=== PATIENT | female | born 1985 | race American Indian/Alaskan Native ===

== ENCOUNTER 2021-06-29 23:20 | Emergency (ER) | payer SELFPAY ==
--- NOTE | 2021-06-30 03:51 | XRay Report ---
RIGHT ANKLE 3 VIEW(S) INDICATION / CLINICAL INFORMATION: FALL COMPARISON: None available. FINDINGS: BONES / JOINT(S): No acute fracture or subluxation. No significant arthritis. SOFT TISSUES: Moderate soft tissue swelling overlies the lateral malleolus. ADDITIONAL FINDINGS: None. IMPRESSION: Moderate soft tissue swelling overlies lateral malleolus. No fractures or avulsion fragments. Signer Name: Pepe Degroot II, MD Signed: 06/30/2021 3:47 AM Workstation Name: [id number]
--- NOTE | 2021-06-30 03:52 | XRay Report ---
RIGHT KNEE 3 VIEW(S) INDICATION / CLINICAL INFORMATION: FALL COMPARISON: None available. FINDINGS: BONES / JOINT(S): No acute fracture or subluxation. No significant arthritis. SOFT TISSUES: No significant abnormality. ADDITIONAL FINDINGS: None. IMPRESSION: 1.No acute findings. No significant abnormality. Signer Name: Pepe Degroot II, MD Signed: 06/30/2021 3:47 AM Workstation Name: [id number]
--- NOTE | 2021-06-30 06:26 | Emergency Department Report ---
ED Extremity Problem HPI - General Chief complaint: Extremity Injury, Lower Stated complaint: RT ANKLE PAIN Source: patient Mode of arrival: Wheelchair Limitations: No Limitations - History of Present Illness Initial comments: 36-year-old female presents to the ED complaining right ankle and right knee pain after falling off porch x 1 day. Also complaining left toothache for se veral days . Patient states right ankle pain is a 8 out of 10 .tooth ache is 8 out of 10 .knee pain is a 2 out of 10 patient has obvious swelling noted to the right ankle. Patient unable to bear weight without pain. No Distracting injury noted. No obvious deformity noted. Patient is alert and oriented x3. She denies any LOC when falling off porch. Patient states that next month she has a dental appointment and has future plans to have all any teeth extracted.. No acute distress noted. No ill appearance noted. MD Complaint: extremity pain, extremity swelling Onset/Timin -: Last night Location: right, knee, other (Ankle) History of Same: No Severity scale (0 -10): 8 Quality: aching Improves with: nothing Worsens with: weight bearing Associated Symptoms: denies other symptoms - Related Data Previous Rx's Medication Instructions Recorded Last Taken Type Acetaminophen/Codeine [Tylenol 1 tab PO Q6H PRN 3 Days #12 tab 06/30/21 Unknown Rx /Codeine # 3 tab] clindamycin HCL [Clindamycin HCl] 300 mg PO BID 10 Days #20 cap 06/30/21 Unknown Rx Allergies Allergy/AdvReac Type Severity Reaction Status Date / Time No Known Allergies Allergy Unverified 06/30/21 02:52 ED Review of Systems ROS: Stated complaint: RT ANKLE PAIN Other details as noted in HPI Constitutional: denies: chills, fever Eyes: denies: eye pain, eye discharge, vision change ENT: dental pain. denies: ear pain, throat pain Respiratory: denies: cough, shortness of breath, wheezing Cardiovascular: denies: chest pain, palpitations Endocrine: no symptoms reported Gastrointestinal: denies: abdominal pain, nausea, diarrhea Genitourinary: denies: urgency, dysuria, discharge Musculoskeletal: joint swelling. denies: back pain, arthralgia Skin: denies: rash, lesions Neurological: denies: headache, weakness, paresthesias Psychiatric: denies: anxiety, depression Hematological/Lymphatic: denies: easy bleeding, easy bruising ED Past Medical Hx - Medications Home Medications: Home Medications Medication Instructions Recorded Confirmed Last Taken Type Acetaminophen/Codeine [Tylenol 1 tab PO Q6H PRN 3 Days #12 tab 06/30/21 Unknown Rx /Codeine # 3 tab] clindamycin HCL [Clindamycin HCl] 300 mg PO BID 10 Days #20 cap 06/30/21 Unknown Rx ED Physical Exam - General Limitations: No Limitations General appearance: alert, in no apparent distress - Head Head exam: Present: atraumatic, normocephalic - Eye Eye exam: Present: normal appearance - ENT ENT exam: Present: mucous membranes moist - Expanded ENT Exam Expanded Mouth exam: Absent: drooling, trismus, muffled voice Teeth exam: Present: dental caries, dental tenderness # - Neck Neck exam: Present: normal inspection - Respiratory Respiratory exam: Present: normal lung sounds bilaterally. Absent: respiratory distress - Cardiovascular Cardiovascular Exam: Present: regular rate, normal rhythm. Absent: systolic murmur, diastolic murmur, rubs, gallop - GI/Abdominal GI/Abdominal exam: Present: soft, normal bowel sounds - Extremities Exam Extremities exam: Present: normal inspection - Back Exam Back exam: Present: normal inspection - Neurological Exam Neurological exam: Present: alert, oriented X3 - Psychiatric Psychiatric exam: Present: normal affect, normal mood - Skin Skin exam: Present: warm, dry, intact, normal color. Absent: rash ED Course Vital Signs 06/30/21 02:47 Temperature 98.4 F Pulse Rate 99 H Respiratory 19 Rate Blood Pressure 166/97 [Right] O2 Sat by Pulse 99 Oximetry ED Medical Decision Making - Radiology Data Radiology results: report reviewed - Medical Decision Making 36-year-old female presents to the ED complaining right ankle and right knee pain after falling off porch x 1 day. Also complaining left toothache for several days . Patient states right ankle pain is a 8 out of 10 .tooth ache is 8 out of 10 .knee pain is a 2 out of 10 patient has obvious swelling noted to the right ankle. Patient unable to bear weight without pain. No Distracting injury noted. No obvious deformity noted. Patient is alert and oriented x3. She denies any LOC when falling off porch. Patient states that next month she has a dental appointment and has future plans to have all remaining teeth extracted. No acute distress noted. No ill appearance noted. Right ankle 3 view shows moderate soft tissue swelling overlies lateral malleolus. No fracture or avulsion fragment noted. Moisés bandage applied. Patient instructed RICE therapy. Right knee 3 views show no acute finding or abnormality. Physical examination unremarkable with the exception of multiple dental caries with gingival erythema with dental swelling noted. She is to keep appointment with dentist. Rechecked the patient is resting quietly quietly and comfortable and feeling better. I discussed the results of diagnostic study, my clinical impression and the plan for further treatment with the patient. Patient agrees with plan and discharge at this present time. All question addressed. I have given the patient instruction regarding a diagnosis ,expectation ,follow- up and return precaution. I explained to the patient that emergent condition may arise and to return to the ED for new worsen and any new persisting condition. I have explained the importance of following up with the primary care physician or referral physician listed below has instructed. The patient verbalized understanding of discharge instruction. Critical care attestation.: If time is entered above; I have spent that time in minutes in the direct care of this critically ill patient, excluding procedure time. ED Disposition Clinical Impression: Tooth ache Right knee pain Qualifiers: Chronicity: acute Qualified Code(s): M25.561 - Pain in right knee Right ankle sprain Qualifiers: Encounter type: initial encounter Involved ligament of ankle: unspecified ligam ent Qualified Code(s): S93.401A - Sprain of unspecified ligament of right ankle, initial encounter Disposition: 01 HOME / SELF CARE / HOMELESS Is pt being admited?: No Does the pt Need Aspirin: No Condition: Stable Instructions: Acute Knee Pain, Adult, How to Use Cold Therapy, [id number], Ankle Sprain, [id number] Additional Instructions: Keep appointment with dentist for next month Return the ED for any worsening symptoms Prescriptions: clindamycin HCL [Clindamycin HCl] 300 mg PO BID 10 Days #20 cap Acetaminophen/Codeine [Tylenol /Codeine # 3 tab] 1 tab PO Q6H PRN 3 Days #12 tab PRN Reason: Pain, Moderate (4-6) Referrals: JULIETTE CARTAGENA MD [Staff Physician] - 3-5 Days [facility] [Provider Group] - 3-5 Days Time of Disposition: 06:27
[2021-06-30 06:37] VITALS: BP 148/89
== END 2021-06-30 06:32 | disposition home or self-care (01) ==
LOC: ED 23:20
DX: S93.409A Sprain of unspecified ligament of unspecified ankle, initial encounter (principal); K08.89 Other specified disorders of teeth and supporting structures; M25.561 Pain in right knee; X58.XXXA Exposure to other specified factors, initial encounter; Y93.89 Activity, other specified; Y92.89 Other specified places as the place of occurrence of the external cause; Y99.8 Other external cause status
CPT/HCPCS: 99283

== ENCOUNTER 2021-12-14 20:00 | Emergency (ER) | payer SELFPAY ==
[2021-12-14 21:04] VITALS: BP 126/69
--- NOTE | 2021-12-15 01:11 | Emergency Department Report ---
ED N/V/D HPI - General Chief complaint: Abdominal Pain Stated complaint: STOMACH VIRUS Source: patient Mode of arrival: Ambulatory Limitations: No Limitations - History of Present Illness Initial comments: Patient is a 36-year-old -[place] female with a history of morbid obesity and asthma who presents to the ED with complaint of acute onset persistent nausea and vomiting and intractable diarrhea with suprapubic pain for the last 3 days after eating at a seafood restaurant. Patient states that other people in her family have had similar symptoms after eating the same place the same food. Patient states that she also started her menstrual cycle about 3 days ago and has been having persistent severe dysmenorrhea. Patient also states that she would like refill on her asthma medications especially albuterol inhaler. Patient states that last time she had nausea and vomiting was 2 days ago but that she has been having persistent diarrhea multiple times in the last 12 hours. Patient denies fever, chills, chest pain, dysuria, urinary frequency and urgency, dizziness, syncope, cough, sore throat, vaginal discharge or low back pain. MD complaint: nausea, vomiting, diarrhea, abdominal pain, other (Dysmenorrhea) -: days(s) (3) Description of Vomiting: food contents, watery, bilious Description of Diarrhea: water Associated Abdominal Pain: Yes (Suprapubic) Location: diffuse (Suprapubic) Radiation: none Severity: mild Pain Scale: 3 Quality: cramping, dull Consistency: intermittent Improves with: none Worsens with: none Context: possible food poisoning, sick contacts Associated Symptoms: denies other symptoms, loss of appetite, malaise, nausea/vomiting. denies: myalgias, chest pain, cough, diaphoresis, fever/chills, headaches, rash, dysuria, shortness of breath, syncope - Related Data Previous Rx's Medication Instructions Recorded Last Taken Type Acetaminophen/Codeine [Tylenol 1 tab PO Q6H PRN 3 Days #12 tab 06/30/21 Unknown Rx /Codeine # 3 tab] clindamycin HCL [Clindamycin HCl] 300 mg PO BID 10 Days #20 cap 06/30/21 Unknown Rx Albuterol Sulfate [Proair 1 - 2 puff IH Q4H PRN #1 inh 12/15/21 Unknown Rx Digihaler] Famotidine [Pepcid] 20 mg PO BID #60 tablet 12/15/21 Unknown Rx Ibuprofen [Motrin] 800 mg PO Q8HR PRN #30 tablet 12/15/21 Unknown Rx Ondansetron [Zofran Odt] 4 mg PO Q8HR PRN #20 tab.rapdis 12/15/21 Unknown Rx Allergies Allergy/AdvReac Type Severity Reaction Status Date / Time No Known Allergies Allergy Unverified 06/30/21 02:52 ED Review of Systems ROS: Stated complaint: STOMACH VIRUS Other details as noted in HPI Constitutional: denies: chills, fever Eyes: denies: eye pain, eye discharge, vision change ENT: denies: ear pain, throat pain Respiratory: denies: cough, shortness of breath, wheezing Cardiovascular: denies: chest pain, palpitations Endocrine: no symptoms reported Gastrointestinal: abdominal pain, nausea, vomiting, diarrhea Genitourinary: denies: urgency, dysuria, discharge Musculoskeletal: denies: back pain, joint swelling, arthralgia Skin: denies: rash, lesions Neurological: denies: headache, weakness, paresthesias Psychiatric: denies: anxiety, depression Hematological/Lymphatic: denies: easy bleeding, easy bruising ED Past Medical Hx - Past Medical History Previous Medical History?: Yes Hx Asthma: Yes - Medications Home Medications: Home Medications Medication Instructions Recorded Confirmed Last Taken Type Acetaminophen/Codeine [Tylenol 1 tab PO Q6H PRN 3 Days #12 tab 06/30/21 Unknown Rx /Codeine # 3 tab] clindamycin HCL [Clindamycin HCl] 300 mg PO BID 10 Days #20 cap 06/30/21 Unknown Rx Albuterol Sulfate [Proair 1 - 2 puff IH Q4H PRN #1 inh 12/15/21 Unknown Rx Digihaler] Famotidine [Pepcid] 20 mg PO BID #60 tablet 12/15/21 Unknown Rx Ibuprofen [Motrin] 800 mg PO Q8HR PRN #30 tablet 12/15/21 Unknown Rx Ondansetron [Zofran Odt] 4 mg PO Q8HR PRN #20 tab.rapdis 12/15/21 Unknown Rx ED Physical Exam - General Limitations: No Limitations General appearance: alert, in no apparent distress - Head Head exam: Present: atraumatic, normocephalic, normal inspection - Eye Eye exam: Present: normal appearance, PERRL, EOMI Pupils: Present: normal accommodation - ENT ENT exam: Present: normal exam, normal orophraynx, mucous membranes moist, TM's normal bilaterally, normal external ear exam - Neck Neck exam: Present: normal inspection, full ROM. Absent: tenderness - Respiratory Respiratory exam: Present: normal lung sounds bilaterally. Absent: respiratory distress, wheezes, rales, rhonchi, chest wall tenderness, accessory muscle use, decreased breath sounds, prolonged expiratory - Cardiovascular Cardiovascular Exam: Present: regular rate, normal rhythm, normal heart sounds. Absent: systolic murmur, diastolic murmur, rubs, gallop - GI/Abdominal GI/Abdominal exam: Present: soft, normal bowel sounds. Absent: tenderness, guarding, rebound, hyperactive bowel sounds, hypoactive bowel sounds, organomegaly, mass - Extremities Exam Extremities exam: Present: normal inspection, full ROM, normal capillary refill - Back Exam Back exam: Present: normal inspection, full ROM. Absent: tenderness, CVA t enderness (R), CVA tenderness (L), muscle spasm, paraspinal tenderness, vertebral tenderness - Neurological Exam Neurological exam: Present: alert, oriented X3, CN II-XII intact, normal gait, reflexes normal - Psychiatric Psychiatric exam: Present: normal affect, normal mood - Skin Skin exam: Present: warm, dry, intact, normal color. Absent: rash ED Course Vital Signs 12/14/21 20:59 Temperature 99.0 F Pulse Rate 95 H Respiratory 18 Rate Blood Pressure 126/69 [Right] O2 Sat by Pulse 97 Oximetry ED Medical Decision Making - Medical Decision Making This is a 36-year-old -[place] female with a history of morbid obesity and asthma who presents to the ED with complaint of acute onset persistent nausea and vomiting and intractable diarrhea with suprapubic pain for the last 3 days after eating at a seafood restaurant. Patient states that other people in her family have had similar symptoms after eating the same place the same food. Patient states that she also started her menstrual cycle about 3 days ago and has been having persistent severe dysmenorrhea. Patient also states that she would like refill on her asthma medications especially albuterol inhaler. Patient states that last time she had nausea and vomiting was 2 days ago but that she has been having persistent diarrhea multiple times in the last 12 hours. In the ED, patient is alert and oriented x3 and is not in any distress. Patient is hemodynamically stable. Patient has not had any nausea or vomiting in the last 2 days. Physical exam is unremarkable. Patient was discharged home on medications and advised to maintain a clear liquid diet for 12 to 24 hours, drink plenty of fluids, and follow-up with her primary care physician in 5 to 7 days for reevaluation. Patient is advised to return to the ED immediately if symptoms get worse. - Differential Diagnosis Viral gastroenteritis; GERD; dysmenorrhea; Critical care attestation.: If time is entered above; I have spent that time in minutes in the direct care of this critically ill patient, excluding procedure time. ED Disposition Clinical Impression: Viral gastroenteritis, Severe dysmenorrhea, Nausea, vomiting and diarrhea Disposition: HOME / SELF CARE / HOMELESS Is pt being admited?: No Does the pt Need Aspirin: No Condition: Stable Instructions: Abdominal Pain (ED), Viral Gastroenteritis, Adult, [id number], Dysmenorrhea, [id number], Diarrhea, Adult, [id number], Nausea and Vomiting, Adult, [id number] Additional Instructions: Maintain a clear liquid diet for 12 to 24 hours, drink plenty fluids, take medication as advised for nausea and for pain. Return to the ED immediately if symptoms get worse, and follow-up with your primary care physician in 7 to 10 days for reevaluation. Prescriptions: Ibuprofen [Motrin] 800 mg PO Q8HR PRN #30 tablet PRN Reason: Pain , Severe (7-10) Famotidine [Pepcid] 20 mg PO BID #60 tablet Albuterol Sulfate [Proair Digihaler] 1 - 2 puff IH Q4H PRN #1 inh PRN Reason: Shortness Of Breath Ondansetron [Zofran Odt] 4 mg PO Q8HR PRN #20 tab.rapdis PRN Reason: Nausea Referrals: [facility] [Provider Group] - 3-5 Days Forms: Work/School Release Form(ED) Time of Disposition: 01:12 Print Language: WOLOF
== END 2021-12-15 01:44 | disposition home or self-care (01) ==
LOC: ED 20:00
DX: A08.4 Viral intestinal infection, unspecified (principal); N94.6 Dysmenorrhea, unspecified; R11.2 Nausea with vomiting, unspecified; R19.7 Diarrhea, unspecified; J45.909 Unspecified asthma, uncomplicated
CPT/HCPCS: 99282